=== PATIENT | male | born 1945 | race Caucasian/White ===

== ENCOUNTER 2017-03-29 05:05 | Inpatient (IN) ==
[2017-03-13 14:47] LABS: Basophils # 0.1 10*3/uL (0.0-0.2); Basophils % 0.6 % (0.0-0.8); Eosinophils # 0.1 10*3/uL (0.0-0.87); Eosinophils % 1.1 % (0.00-10.9); Hematocrit 49.8 VOL% (42.0-52.0); Hemoglobin 17.3 GM/DL (14.0-18.0); Immature Granulocytes % 0.3 %; Immature Granulocytes Absolute 0.03 #; Lymphocytes # 3.2 10*3/uL (1.4-4.0); Lymphocytes % 33.4 % (21.2-54.2); Mean Corpuscular HGB Conc 34.7 GM/DL (32-36); Mean Corpuscular Hemoglobin 32 PG (27-34); Mean Corpuscular Volume 90.7 FL (87-102); Monocytes # 0.8 10*3/uL (0.11-0.8); Monocytes % 8.4 % (1.7-12.7); Neutrophils # 5.5 10*3/uL (1.4-7.4); Neutrophils % 56.2 % (38.7-73.9); Platelet Count 183 T/CUMM (130-400); Red Blood Count 5.49 MC/CUMM (3.8-5.5); Red Cell Distribution Width 11.8 % (9.3-17.3); White Blood Count 9.7 T/CUMM (4-12)
[2017-03-13 14:55] LABS: Apearance,Urine CLEAR (Clear); Bilirubin,Urine Negative (Negative); Blood, Urine Negative (Negative); Glucose,Urine (UA) Negative (Negative); Ketones,Urine Negative (Negative); Mucus,Urine Occasional /LPF (Occasional); Nitrite,Urine Negative (Negative); PT Patient Result 10.4 SECS; Partial Thromboplastin Time 26.8 SECS (0-40); Protein,Urine Negative; RBC,Urine 1 /HPF (0-4); Urine Color Yellow (Yellow); Urine Specific Gravity 1.019 (1.001-1.035); WBC,Urine <1 /HPF (0-6)
[2017-03-13 15:19] LABS: Albumin 4.2 G/DL (3.4-5.0); Bilirubin,Total 1.4 MG/DL (0.2-1.0); Calcium 8.7 MG/DL (8.5-10.1); Osmolality,Calculated 274.7 MOS/KG (273-304); Potassium 4.1 MMOL/L (3.5-5.1); Total Protein 7.2 G/DL (6.4-8.3)
[2017-03-29] MEDS ORDERED: VANCOMYCIN 1,000 MG VIAL ONE (05:52)
[2017-03-29] MEDS ORDERED: ROPIVACAINE 0.5% 30 ML VIAL ONE (05:56)
[2017-03-29] MEDS ORDERED: DIAZEPAM 5 MG TABLET PO ONE (06:00)
[2017-03-29] MEDS ORDERED: ceFAZolin 2,000 MG in PREMIX 1 EACH IV ONE (06:00)
[2017-03-29] MEDS ORDERED: VANCOMYCIN INJ 1,000 MG in SODIUM CHLORIDE 0.9% 250 ML IV ONE (06:00)
[2017-03-29] MEDS ORDERED: FAMOTIDINE 20 MG TABLET PO ONE (06:00)
[2017-03-29] MEDS ORDERED: FAMOTIDINE 20 MG TABLET ONE (06:05)
[2017-03-29] MEDS ORDERED: DIAZEPAM 5 MG TABLET ONE (06:05)
[2017-03-29] MEDS ORDERED: LACTATED RINGERS 1,000 ML IV SCH ×2 (07:00→09:00)
[2017-03-29] MEDS ORDERED: TRANEXAMIC ACID 1,000 MG/10 ML VIAL IV ONE (07:21)
[2017-03-29] MEDS ORDERED: BACITRACIN OINT 0.9 GM PACK TOP ONE (08:20)
[2017-03-29] MEDS ORDERED: ZALEPLON 5 MG CAPSULE PO PRN (08:48)
[2017-03-29] MEDS ORDERED: ACETAMINOPHEN 325 MG TABLET PO PRN (08:49)
[2017-03-29] MEDS ORDERED: ONDANSETRON 4 MG/2 ML VIAL IV PRN ×2 (08:49→09:39)
[2017-03-29] MEDS ORDERED: MORPHINE 2 MG/1 ML SYRINGE IV PRN (08:49)
[2017-03-29] MEDS ORDERED: MAGNESIUM HYDROXIDE SUSP 30 ML UDCUP PO PRN (08:49)
[2017-03-29] MEDS ORDERED: TAMSULOSIN 0.4 MG CAPSULE PO SCH ×2 (09:00→22:00)
[2017-03-29] MEDS ORDERED: KETOROLAC 30 MG/1 ML VIAL IV SCH (09:00)
[2017-03-29] MEDS ORDERED: PANTOPRAZOLE 40 MG TABLET PO SCH ×2 (09:00→22:00)
[2017-03-29] MEDS ORDERED: FINASTERIDE 5 MG TABLET PO SCH ×2 (09:00→22:00)
[2017-03-29] MEDS ORDERED: SIMVASTATIN 10 MG TABLET PO SCH ×2 (09:00→22:00)
[2017-03-29] MEDS ORDERED: fentaNYL 100 MCG/2 ML VIAL ONE ×2 (09:22→09:23)
[2017-03-29] MEDS ORDERED: PROPOFOL 200 MG/20 ML VIAL IV ONE (09:25)
[2017-03-29] MEDS ORDERED: SEVOFLURANE 1 UNIT/15 MINUTE INH ONE (09:26)
[2017-03-29] MEDS ORDERED: MIDAZOLAM 2 MG/2 ML VIAL ONE (09:26)
[2017-03-29] MEDS ORDERED: ROCURONIUM 100 MG/10 ML VIAL IV ONE (09:27)
[2017-03-29] MEDS ORDERED: ONDANSETRON 4 MG/2 ML VIAL ONE (09:27)
[2017-03-29] MEDS ORDERED: GLYCOPYRROLATE 0.4 MG/2 ML VIAL ONE (09:27)
[2017-03-29] MEDS ORDERED: NEOSTIGMINE 10 MG/10 ML VIAL ONE (09:27)
[2017-03-29] MEDS ORDERED: LACTATED RINGERS 1,000 ML IV ONE (09:28)
[2017-03-29] MEDS: HYDROmorphone 2 MG/1 ML VIAL IV PRN ×2 (09:40→09:47)
[2017-03-29] MEDS: MORPHINE 2 MG/1 ML SYRINGE IV PRN ×2 (13:32→21:33)
[2017-03-29] MEDS: ceFAZolin 2,000 MG in PREMIX 1 EACH IV SCH ×2 (16:27→22:46)
[2017-03-29] MEDS: KETOROLAC 30 MG/1 ML VIAL IV SCH ×2 (16:27→21:34)
[2017-03-29] MEDS: FINASTERIDE 5 MG TABLET PO SCH ×2 (21:34→23:31)
[2017-03-29] MEDS: PANTOPRAZOLE 40 MG TABLET PO SCH ×2 (21:35→23:31)
[2017-03-29] MEDS: SIMVASTATIN 10 MG TABLET PO SCH ×2 (21:35→23:31)
[2017-03-29] MEDS: TAMSULOSIN 0.4 MG CAPSULE PO SCH ×2 (21:35→23:30)
[2017-03-30] MEDS: KETOROLAC 30 MG/1 ML VIAL IV SCH (02:48)
[2017-03-30 05:16] LABS: Basophils % 0.3 % (0.0-0.8); Eosinophils % 0.1 % (0.00-10.9); Hematocrit 42.1 VOL% (42.0-52.0); Hemoglobin 14.8 GM/DL (14.0-18.0); Immature Granulocytes % 0.6 %; Immature Granulocytes Absolute 0.09 #; Lymphocytes % 13.6 % (21.2-54.2); Mean Corpuscular HGB Conc 35.2 GM/DL (32-36); Mean Corpuscular Hemoglobin 31 PG (27-34); Mean Corpuscular Volume 89.2 FL (87-102); Mean Platelet Volume 10.3 FL (9.6-12.0); Monocytes # 1.6 10*3/uL (0.11-0.8); Neutrophils # 10.7 10*3/uL (1.4-7.4); Neutrophils % 74.4 % (38.7-73.9); Platelet Count 169 T/CUMM (130-400); Red Blood Count 4.72 MC/CUMM (3.8-5.5); Red Cell Distribution Width 11.9 % (9.3-17.3); White Blood Count 14.4 T/CUMM (4-12)
[2017-03-30] MEDS: MORPHINE 2 MG/1 ML SYRINGE IV PRN ×2 (05:33)
[2017-03-30 07:50] VITALS: BP 135/75
== END 2017-03-30 10:50 | disposition home health service (06) | DRG 483 ==
LOC: N.SDSINP 05:05 → N.3E 10:14
PROVIDERS: ADMIT Orthopaedic Surgery; ATTEND Orthopaedic Surgery

== ENCOUNTER 2017-09-04 08:16 | Inpatient (IN) ==
[2017-09-07 11:47] VITALS: BP 127/72
== END 2017-09-07 12:26 | disposition home or self-care (01) | DRG 690 ==
LOC: N.ED 08:16 → SUATTDRO 13:00 → N.EDINP 13:00 → N.2E 14:35
PROVIDERS: ADMIT Family Medicine; ATTEND Internal Medicine